=== PATIENT | male | born 2000 | race Hispanic/Latino ===

== ENCOUNTER 2023-02-13 13:30 | Emergency (ER) | payer SELFPAY ==
[~2023-02-13] VITALS: Ht 152.4 cm; Wt 54.4 kg
[2023-02-13] MEDS ORDERED: IBUPROFEN 200 MG TAB PO ONE (15:00)
[2023-02-13 15:05] LABS: BASOPHILS % (AUTO) 0.3 % (0.0-5.0); EOSINOPHILS % (AUTO) 2.5 % (0.0-8.0); HEMATOCRIT 46.3 % (42-54); MEAN CORPUSCULAR HEMOGLOBIN 29.6 pg (27.0-33.0); MEAN CORPUSCULAR HGB CONC 34.3 g/dL (32.0-36.0); MEAN CORPUSCULAR VOLUME 86.2 fL (80-100); MONOCYTES % (AUTO) 9.4 % (3.0-13.0); NEUTROPHILS % (AUTO) 62.8 % (40.0-77.0); PLATELET COUNT (AUTO) 260 K/uL (130-400); RED BLOOD CELL COUNT(AUTO) 5.37 MIL/uL (4.50-6.20); WHITE BLOOD COUNT (AUTO) 6.7 K/uL (4.8-10.8)
[2023-02-13 15:15] LABS: CREATININE 0.8 mg/dL (0.5-1.5)
[2023-02-13 15:19] LABS: ALBUMIN 4.4 g/dL (3.5-5.0)
[2023-02-13 16:33] LABS: APPEARANCE,URINE CLEAR (CLEAR); BILIRUBIN,URINE NEGATIVE (NEGATIVE); COLOR,URINE YELLOW (YELLOW); GLUCOSE, URINE (UA) NEGATIVE (NEGATIVE); KETONES,URINE NEGATIVE (NEGATIVE); LEUKOCYTE ESTERASE ,URINE NEGATIVE Leu/uL (NEGATIVE); NITRATE,URINE NEGATIVE (NEGATIVE); PH,URINE 6.5 (5.0-8.0); PROTEIN,URINE NEGATIVE (NEGATIVE); UROBILINOGEN,URINE 0.2 mg/dL (0.2-1.0)
[2023-02-13] MEDS ORDERED: IBUP-2070 PO (16:48)
[2023-02-13 16:50] LABS: BACTERIA,URINE None Seen /HPF (None Seen)
[2023-02-13 16:51] LABS: SQUAMOUS EPITHELIAL CELL,UR Rare /HPF (0-2)
[2023-02-13 16:58] VITALS: BP 130/67
== END 2023-02-13 17:06 | disposition home or self-care (01) ==
LOC: EDH 13:30
DX: R51.9 Headache, unspecified (principal); R53.83 Other fatigue; Z20.822 Contact with and (suspected) exposure to COVID-19
CPT/HCPCS: 99283; 87635; 80053; 83690; 85025; 87804 ×2; 81001; 36415; C9803